=== PATIENT | male | born 1990 ===

== ENCOUNTER 2016-06-27 13:14 | Outpatient (CLI) | payer OTHER ==
--- NOTE | 2016-06-28 12:58 | Magnetic Resonance Report ---
MRI LUMBAR SPINE WITHOUT CONTRAST: 06/27/16 CLINICAL: Low back pain and radiculopathy. TECHNIQUE: Sagittal and axial T1 and T2, and sagittal STIR sequences on a 1.5 Ebony magnet. FINDINGS: Normal vertebral body height and alignment. Disc space narrowing and decreased T2 disc signal at L5-S1. Normal marrow signal and normal disc signal at the other levels. The conus medullaris is normal and terminates at L1. L1-2: Intact. L2-3: Intact. L3-4: Intact. L4-5: Intact. L5-S1: A focal central annular tear and small focal central disc protrusion. No apparent nerve root impingement. IMPRESSION: L5-S1 degenerative disc disease with a focal central annular tear and a small focal central disc protrusion. The rest of the discs are intact. No apparent nerve root impingement.
== END 2016-06-27 13:15 | disposition home or self-care (01) ==
LOC: SPVIMAG 13:14
PROVIDERS: ATTEND Orthopaedic Surgery Orthopaedic Trauma
DX: M51.17 Intervertebral disc disorders with radiculopathy, lumbosacral region (principal)
CPT/HCPCS: 72148